=== PATIENT | female | born 1970 | race American Indian/Alaskan Native ===

== ENCOUNTER 2019-05-11 10:03 | Outpatient (CLI) | payer BC ==
--- NOTE | 2019-05-11 13:18 | Mammography Report ---
DIGITAL SCREENING MAMMOGRAM WITH CAD, 05/11/2019 INDICATION: Routine screening mammography. TECHNIQUE: Digital bilateral 2D mammography was obtained in the craniocaudal and mediolateral obliq ue projections. This examination was interpreted with the benefit of Computer-Aided Detection analysi s. COMPARISON: 05/12/2013 FINDINGS: Breast Density: The breasts are heterogeneously dense, which may obscure small masses. Right asymmetries require additional imaging. No architectural distortion or suspicious calcification s of the right breast. There is no evidence of dominant mass, suspicious calcifications or architectu ral distortion in the left breast. IMPRESSION: Right asymmetries requiring additional imaging. Recommend recall for right spot compressi on views and right breast ultrasound if needed. Follow up recommendation: Routine yearly Category 0: Incomplete. Needs additional imaging evaluation and/or prior mammograms for comparison. A "normal" or negative report should not discourage follow up or biopsy of a clinically significant f inding. A written summary of these findings will be mailed to the patient. The patient will be entered into a mammography reporting system which will generate a reminder letter for the patient's next appointmen t at the appropriate interval. [employer] recommends yearly mammograms starting at age 40 and continuing as l [place] as a woman is in good health. Breast MRI is recommended for women with an approximate 20-25% or greater lifetime risk of breast cancer, including women with a strong family history of breast or [place] cancer or who have been treated for Hodgkin's disease. Signer Name: Farhad Cameron MD Signed: 05/11/2019 1:14 PM Workstation Name: [id number]
== END 2019-05-11 10:04 | disposition home or self-care (01) ==
LOC: MAMMO 10:03
PROVIDERS: ATTEND Obstetrics & Gynecology
DX: Z12.31 Encounter for screening mammogram for malignant neoplasm of breast (principal)
CPT/HCPCS: 77067